=== PATIENT | male | born 1955 | race Caucasian/White ===

== ENCOUNTER 2024-06-18 18:44 | Inpatient (IN) | payer OTHER ==
[~2024-06-18] VITALS: Ht 172.7 cm; Wt 69.9 kg
[~2024-06-18 18:44] MED LIST: ASCO-339 MT; ASPI-1497 MT; ATOR40TA70 MT; CLOP-31 MT; CLOP75TA33 MT; FERR-71 MT; HYDR25TA78 MT; INSU100I24 SQ; INSU100I28 SQ; OMEG100017 MT; PANT40TA51 MT
[2024-06-18] MEDS: HYDROCODONE/ACETAMINOPHEN 10/325MG TABLET PO ONE (19:44)
[2024-06-18 19:55] LABS: BASOPHILS % 0.6 % (0.0-2.0); EOSINOPHILS % 0.6 % (0.0-5.0); HEMATOCRIT. 24.5 % (42.0-52.0); HEMOGLOBIN. 8.2 g/dL (14.0-18.0); LYMPHOCYTES % 9.9 % (20.0-50.0); MEAN CORPUSCULAR HEMOGLOBIN 29.3 pg (28.0-32.0); MEAN CORPUSCULAR HGB CONC 33.5 g/dL (31.0-37.0); MEAN CORPUSCULAR VOLUME 87.6 fL (80.0-94.0); MEAN PLATELET VOLUME 7.4 fl (7.4-10.4); MONOCYTES % 7.5 % (2.0-8.0); NEUTROPHILS % 81.4 % (40.0-76.0); PLATELET 233 x1000/uL (130-400); RED BLOOD CELL COUNT 2.79 mill/uL (4.7-6.1); RED CELL DISTRIBUTION WIDTH 13.7 % (11.6-14.6); WHITE BLOOD COUNT 10.5 x1000/uL (4.5-11.0)
[2024-06-18 20:01] LABS: CALCIUM 7.8 mg/dL (8.7-10.4)
[2024-06-18 20:23] LABS: CREATININE 1.9 mg/dL (0.6-1.3)
[2024-06-18 20:36] LABS: BETA HYDROXYBUTYRATE 1.8 mMol/L (0.0-0.3)
[2024-06-18 20:45] LABS: CREATINE KINASE 150 IU/L (46-171)
[2024-06-18 21:25] LABS: INR 1.1
[2024-06-18] MEDS: MORPHINE SULFATE 4 MG/ML INJ (FOR IV/IM USE) IV ONE (21:47)
[2024-06-18] MEDS: INSULIN REGULAR (HUMULIN R) 1000UNITS/10ML VIAL SUBCUT NR (21:48)
[2024-06-18] MEDS: SODIUM CHLORIDE 0.9% 1,000 ML IV ONE (21:48)
[2024-06-18 23:30] VITALS: BP 99/55; PULSE 65; RESP 18; TEMP 36.418
[2024-06-19] VITALS: BP 97/55; PULSE 65; RESP 18; TEMP 36.3918; O2SAT 97
[2024-06-19] MEDS ORDERED: ACETAMINOPHEN 325MG TABLET PO PRN (00:15)
[2024-06-19] MEDS ORDERED: ONDANSETRON HCL 4MG/2ML INJ IV PRN (00:15)
[2024-06-19] MEDS ORDERED: NALOXONE HCL 0.4MG/ML VIAL IV PRN (00:30)
[2024-06-19] MEDS ORDERED: DEXTROSE 50% WATER 50ML SYRINGE IV PRN ×2 (00:45→10:45)
[2024-06-19] MEDS: ZOLPIDEM TARTRATE 5MG TABLET PO PRN (01:30)
[2024-06-19] MEDS: SODIUM CHLORIDE 0.9% 1,000 ML IV SCH (01:31)
[2024-06-19] MEDS: HYDROCODONE/ACETAMINOPHEN 5/325MG TABLET PO PRN (01:33)
[2024-06-19 04:00] VITALS: BP 128/52; PULSE 60; RESP 17; TEMP 36.44736; O2SAT 98
[2024-06-19] MEDS: BLOOD SUGAR DIAGNOSTIC STRIP TEST SCH (06:36)
[2024-06-19] MEDS: PANTOPRAZOLE 40MG DR TABLET PO SCH (06:36)
[2024-06-19] MEDS: INSULIN LISPRO 100 UNITS/ML SUBCUT SCH ×2 (07:50→12:53)
[2024-06-19 09:48] LABS: CREATINE KINASE MB FRACTION 2.1 ng/mL (0.5-3.6); TROPONIN I HIGH SENSITIVITY 9 ng/L (3.0-53)
[2024-06-19 09:50] LABS: CREATINE KINASE 142 IU/L (46-171)
[2024-06-19 12:00] VITALS: BP 139/53; PULSE 60; PULSE 61; RESP 18; RESP 19; TEMP 36.89184; O2SAT 95; O2SAT 98
[2024-06-19] MEDS: ENOXAPARIN 40MG/0.4ML SYR SUBCUT SCH (12:17)
[2024-06-19] MEDS ORDERED: BLOOD SUGAR DIAGNOSTIC STRIP TEST SCH (12:20)
[2024-06-19 16:00] VITALS: BP 110/47; PULSE 60; RESP 18; TEMP 36.50292; O2SAT 95
[2024-06-19 16:29] LABS: CHLORIDE 108 mEq/L (98-107); POTASSIUM 3.5 mEq/L (3.5-5.1); SODIUM 138 mEq/L (136-145)
[2024-06-19 16:30] LABS: CARBON DIOXIDE 23 mEq/L (21-32)
[2024-06-19 16:31] LABS: CALCIUM 7.6 mg/dL (8.7-10.4)
[2024-06-19 16:35] LABS: CREATININE 1.6 mg/dL (0.6-1.3); IRON 34 ug/dL (65-175)
[2024-06-19 16:36] LABS: CREATINE KINASE MB FRACTION 2.6 ng/mL (0.5-3.6); UREA NITROGEN BLOOD 19 mg/dL (9-23)
[2024-06-19 16:38] LABS: TOTAL IRON BINDING CAPACITY 108 ug/dl (250-425)
[2024-06-19 16:40] LABS: FERRITIN 865 ng/mL (22-322); FOLIC ACID (FOLATE) SERUM 14.61 ng/mL (>5.38)
[2024-06-19 16:41] LABS: VITAMIN B12 SERUM 738 pg/mL (211-911)
[2024-06-19 16:46] LABS: GLUCOSE 157 mg/dL (70-105)
[2024-06-19 20:00] VITALS: BP 138/57; PULSE 66; RESP 18; TEMP 36.44736; O2SAT 95
[2024-06-19 21:51] LABS: CREATINE KINASE 139 IU/L (46-171)
[2024-06-19] MEDS ORDERED: INSULIN GLARGINE 100 UNITS/ML SUBCUT SCH (22:00)
[2024-06-20] VITALS: BP 149/54; PULSE 70; RESP 18; TEMP 36.44736; O2SAT 96
[2024-06-20 04:00] VITALS: BP 143/65; PULSE 93; RESP 18; TEMP 36.28068; O2SAT 96
[2024-06-20 06:36] LABS: CALCIUM 7.6 mg/dL (8.7-10.4); POTASSIUM 4.3 mEq/L (3.5-5.1)
[2024-06-20 06:40] LABS: CREATININE 1.5 mg/dL (0.6-1.3)
[2024-06-20 07:16] LABS: BASOPHILS % 0.9 % (0.0-2.0); EOSINOPHILS % 2.5 % (0.0-5.0); HEMATOCRIT. 25.2 % (42.0-52.0); HEMOGLOBIN. 8.6 g/dL (14.0-18.0); LYMPHOCYTES % 7.8 % (20.0-50.0); MEAN CORPUSCULAR HEMOGLOBIN 29.8 pg (28.0-32.0); MEAN CORPUSCULAR HGB CONC 34.1 g/dL (31.0-37.0); MEAN CORPUSCULAR VOLUME 87.4 fL (80.0-94.0); MEAN PLATELET VOLUME 7.9 fl (7.4-10.4); MONOCYTES % 4.5 % (2.0-8.0); NEUTROPHILS % 84.3 % (40.0-76.0); PLATELET 214 x1000/uL (130-400); RED BLOOD CELL COUNT 2.89 mill/uL (4.7-6.1); RED CELL DISTRIBUTION WIDTH 13.8 % (11.6-14.6); WHITE BLOOD COUNT 9.8 x1000/uL (4.5-11.0)
[2024-06-20 08:00] VITALS: BP 130/90; PULSE 73; RESP 17; TEMP 36.16956; O2SAT 98
[2024-06-20] MEDS ORDERED: TRANEXAMIC ACID 1000MG PREMIX 100 ML IV SCH ×2 (09:15)
[2024-06-20] MEDS ORDERED: VANCOMYCIN HCL 1GM VIAL ONE ×2 (09:42→11:26)
[2024-06-20] MEDS ORDERED: POLYMYXIN B SULFATE 500000 UNITS/VIAL ONE (09:42)
[2024-06-20] MEDS ORDERED: LIDOCAINE HCL/EPINEPHRINE 1%-EPI 1:100,000 20 ML VIAL ONE (09:43)
[2024-06-20] MEDS ORDERED: ROPIVACAINE HCL 1% 20 ML VIAL EPI ONE (09:46)
[2024-06-20] MEDS ORDERED: MORPHINE SULFATE/PF 1MG/ML 10ML AMP ONE (09:47)
[2024-06-20] MEDS ORDERED: EPINEPHRINE 1:1000 1 MG/ML AMP ONE (09:47)
[2024-06-20] MEDS ORDERED: KETOROLAC 30MG/ML VIAL ONE (09:47)
[2024-06-20] MEDS ORDERED: PROPOFOL 200MG/20ML VIAL IV ONE (10:09)
[2024-06-20] MEDS ORDERED: FENTANYL CITRATE/PF 50MCG/ML 2ML VIAL ONE ×2 (10:11→11:15)
[2024-06-20] MEDS ORDERED: DEXAMETHASONE 4MG/ML 1ML VIAL ONE (10:49)
[2024-06-20] MEDS ORDERED: SUCCINYLCHOLINE CHLORIDE 200MG/10ML IV ONE (10:49)
[2024-06-20] MEDS ORDERED: EPHEDRINE SULFATE 50MG/ML VIAL ONE (10:50)
[2024-06-20] MEDS ORDERED: SKIN ADHESIVE 0.7 GM EA TOP ONE (11:37)
[2024-06-20] MEDS ORDERED: ONDANSETRON HCL 4MG/2ML INJ IV PRN ×2 (12:00)
[2024-06-20] MEDS ORDERED: CEFAZOLIN 1000MG PREMIX 50 ML IV SCH (12:00)
[2024-06-20] MEDS ORDERED: MEPERIDINE HCL/PF 25MG/ML CPJ IV PRN (12:00)
[2024-06-20] MEDS: HYDRALAZINE 20MG/ML VIAL IV NR (12:00)
[2024-06-20] MEDS ORDERED: HYDROMORPHONE HCL/PF 2MG/ML INJ IV PRN (12:00)
[2024-06-20] MEDS ORDERED: KETOROLAC 15MG/ML VIAL IV PRN (12:00)
[2024-06-20] MEDS: METOCLOPRAMIDE HCL 10MG/2ML VIAL IV SCH (18:25)
[2024-06-20] MEDS: SENNOSIDES/DOCUSATE SOD 8.6/50MG TABLET PO SCH (21:56)
[2024-06-20 22:00] VITALS: BP 133/47; PULSE 72; RESP 19; TEMP 36.33624; O2SAT 99
[2024-06-20] MEDS: CEFAZOLIN 1000MG PREMIX 50 ML IV SCH (23:10)
[2024-06-21] VITALS: BP 140/52; PULSE 70; RESP 18; TEMP 36.44736; O2SAT 100
[2024-06-21 07:19] LABS: POTASSIUM 4.6 mEq/L (3.5-5.1)
[2024-06-21 07:20] LABS: CALCIUM 7.4 mg/dL (8.7-10.4)
[2024-06-21 07:25] LABS: CREATININE 1.7 mg/dL (0.6-1.3)
[2024-06-21 08:00] VITALS: BP 129/54; PULSE 78; RESP 18; TEMP 36.50292; O2SAT 98
[2024-06-21 12:00] VITALS: BP 124/61; PULSE 74; RESP 19; TEMP 36.44736; O2SAT 97
[2024-06-21 12:26] LABS: CREATINE KINASE 178 IU/L (46-171)
[2024-06-21] MEDS: CHLORHEXIDINE GLUCONATE 4% EXTERNAL USE TOP SCH (12:52)
[2024-06-21] MEDS: CEFAZOLIN 1000MG PREMIX 50 ML IV SCH (14:52)
[2024-06-21 16:00] VITALS: BP 142/47; PULSE 68; RESP 17; TEMP 37.2252; O2SAT 98
[2024-06-21] MEDS: POVIDONE-IODINE 10% TOPICAL SOLN 240ML TOP SCH (17:10)
[2024-06-21 20:00] VITALS: BP 147/63; PULSE 73; RESP 19; TEMP 36.78072; O2SAT 96
[2024-06-22] VITALS: BP 138/73; PULSE 78; RESP 19; TEMP 36.55848; O2SAT 97
[2024-06-22 04:00] VITALS: BP 171/58; PULSE 82; RESP 19; TEMP 37.11408; O2SAT 98
[2024-06-22] MEDS: HYDROCODONE/ACETAMINOPHEN 5/325MG TABLET PO PRN (06:46)
[2024-06-22] MEDS: CLONIDINE 0.1MG TABLET PO PRN (06:47)
[2024-06-22 07:02] LABS: CHLORIDE 112 mEq/L (98-107); SODIUM 140 mEq/L (136-145)
[2024-06-22 07:03] LABS: CARBON DIOXIDE 20 mEq/L (21-32)
[2024-06-22 07:04] LABS: CALCIUM 7.9 mg/dL (8.7-10.4)
[2024-06-22 07:08] LABS: CREATININE 1.2 mg/dL (0.6-1.3); GLUCOSE 364 mg/dL (70-105)
[2024-06-22 07:09] LABS: UREA NITROGEN BLOOD 16 mg/dL (9-23)
[2024-06-22 07:33] LABS: BASOPHILS % 0.4 % (0.0-2.0); EOSINOPHILS % 1.5 % (0.0-5.0); HEMATOCRIT. 23.1 % (42.0-52.0); HEMOGLOBIN. 7.5 g/dL (14.0-18.0); LYMPHOCYTES % 7.9 % (20.0-50.0); MEAN CORPUSCULAR HEMOGLOBIN 29.2 pg (28.0-32.0); MEAN CORPUSCULAR HGB CONC 32.5 g/dL (31.0-37.0); MEAN PLATELET VOLUME 7.9 fl (7.4-10.4); MONOCYTES % 5.3 % (2.0-8.0); NEUTROPHILS % 84.9 % (40.0-76.0); PLATELET 207 x1000/uL (130-400); RED BLOOD CELL COUNT 2.57 mill/uL (4.7-6.1); RED CELL DISTRIBUTION WIDTH 14.7 % (11.6-14.6); WHITE BLOOD COUNT 11.8 x1000/uL (4.5-11.0)
[2024-06-22 08:00] VITALS: BP 162/87; PULSE 86; RESP 18; TEMP 37.16964; O2SAT 98
[2024-06-22 08:49] LABS: PREALBUMIN < 5.0 mg/dl (10.0-40.0)
[2024-06-22 12:00] VITALS: BP 162/45; PULSE 67; RESP 17; TEMP 36.89184; O2SAT 99
[2024-06-22 16:00] VITALS: BP 146/33; PULSE 47; RESP 17; TEMP 36.78072; O2SAT 99
[2024-06-22 20:00] VITALS: BP 154/63; PULSE 69; RESP 16; TEMP 36.28068; O2SAT 100
[2024-06-22] MEDS: HYDROCODONE/ACETAMINOPHEN 10/325MG TABLET PO PRN (21:53)
[2024-06-23] VITALS: BP 149/76; PULSE 61; RESP 18; TEMP 36.89184; O2SAT 98
[2024-06-23 04:00] VITALS: BP 132/66; PULSE 68; RESP 19; TEMP 36.28068; O2SAT 100
[2024-06-23 07:33] LABS: BASOPHILS % 0.9 % (0.0-2.0); EOSINOPHILS % 3.8 % (0.0-5.0); HEMATOCRIT. 24.2 % (42.0-52.0); HEMOGLOBIN. 7.9 g/dL (14.0-18.0); LYMPHOCYTES % 17.6 % (20.0-50.0); MEAN CORPUSCULAR HEMOGLOBIN 29.2 pg (28.0-32.0); MEAN CORPUSCULAR HGB CONC 32.6 g/dL (31.0-37.0); MEAN CORPUSCULAR VOLUME 89.6 fL (80.0-94.0); MEAN PLATELET VOLUME 7.8 fl (7.4-10.4); NEUTROPHILS % 70.7 % (40.0-76.0); PLATELET 214 x1000/uL (130-400); RED CELL DISTRIBUTION WIDTH 14.6 % (11.6-14.6); WHITE BLOOD COUNT 7.6 x1000/uL (4.5-11.0)
[2024-06-23 07:39] LABS: CARBON DIOXIDE 23 mEq/L (21-32); CHLORIDE 111 mEq/L (98-107); POTASSIUM 4.2 mEq/L (3.5-5.1); SODIUM 140 mEq/L (136-145)
[2024-06-23 07:40] LABS: CALCIUM 7.7 mg/dL (8.7-10.4)
[2024-06-23 07:44] LABS: CREATININE 1.1 mg/dL (0.6-1.3)
[2024-06-23 07:45] LABS: UREA NITROGEN BLOOD 12 mg/dL (9-23)
[2024-06-23 08:00] VITALS: BP 128/70; PULSE 74; RESP 20; TEMP 36.22512; O2SAT 98
[2024-06-23 08:24] LABS: GLUCOSE 211 mg/dL (70-105)
[2024-06-23 12:00] VITALS: BP 130/68; PULSE 72; RESP 19; TEMP 36.22512; O2SAT 99
[2024-06-23 16:00] VITALS: BP 129/71; PULSE 75; RESP 19; TEMP 36.33624; O2SAT 99
[2024-06-23] MEDS: METFORMIN HCL 500MG TABLET PO SCH (17:50)
[2024-06-23 20:00] VITALS: BP 148/70; PULSE 82; RESP 16; TEMP 36.83628; O2SAT 98
[2024-06-24] VITALS: BP 124/73; PULSE 69; RESP 18; TEMP 36.50292; O2SAT 100
[2024-06-24 04:00] VITALS: BP 134/70; PULSE 90; RESP 16; TEMP 37.44744; O2SAT 99
[2024-06-24 08:00] VITALS: BP 178/61; PULSE 76; RESP 18; TEMP 36.28068; O2SAT 99
[2024-06-24] MEDS: ACETAMINOPHEN 325MG TABLET PO PRN (09:58)
[2024-06-24 12:00] VITALS: BP 110/47; PULSE 74; RESP 18; TEMP 36.33624; O2SAT 97
[2024-06-24] MEDS ORDERED: NALOXONE HCL 0.4MG/ML VIAL IV PRN (16:45)
[2024-06-24 20:00] VITALS: BP 139/46; PULSE 77; RESP 18; TEMP 36.9474; O2SAT 100
[2024-06-25] VITALS: BP 158/61; PULSE 73; RESP 20; TEMP 36.6696; O2SAT 98
[2024-06-25 04:00] VITALS: BP 159/59; PULSE 78; RESP 20; TEMP 36.61404; O2SAT 98
[2024-06-25 08:00] VITALS: BP 105/46; PULSE 81; RESP 19; TEMP 37.16964; O2SAT 97
[2024-06-25 12:00] VITALS: BP 120/69; PULSE 81; RESP 19; TEMP 37.16964; O2SAT 99
[2024-06-25 16:00] VITALS: BP 137/69; PULSE 84; RESP 19; TEMP 36.61404; O2SAT 96
[2024-06-25 20:00] VITALS: BP 168/57; PULSE 84; RESP 20; TEMP 36.61404; O2SAT 99
[2024-06-26] VITALS: BP 162/60; PULSE 72; RESP 20; TEMP 36.50292; O2SAT 95
[2024-06-26 04:00] VITALS: BP 162/59; PULSE 75; RESP 20; TEMP 36.50292; O2SAT 98
[2024-06-26 08:00] VITALS: BP 150/65; PULSE 76; RESP 18; TEMP 36.55848; O2SAT 100
[2024-06-26 12:00] VITALS: BP 144/58; PULSE 73; RESP 19; TEMP 37.05852; O2SAT 97
[2024-06-26 16:00] VITALS: BP 144/58; PULSE 79; RESP 19; TEMP 26.1132; O2SAT 100
[2024-06-26 20:00] VITALS: BP 135/61; PULSE 85; RESP 20; TEMP 36.61404; O2SAT 99
[2024-06-27] VITALS: BP 160/36; PULSE 78; RESP 20; TEMP 35.8362; O2SAT 99
[2024-06-27 08:00] VITALS: BP 128/63; PULSE 82; RESP 19; TEMP 36.55848; O2SAT 97
[2024-06-27 08:31] LABS: BASOPHILS % 0.6 % (0.0-2.0); EOSINOPHILS % 2.3 % (0.0-5.0); HEMATOCRIT. 22.8 % (42.0-52.0); HEMOGLOBIN. 7.7 g/dL (14.0-18.0); LYMPHOCYTES % 20.2 % (20.0-50.0); MEAN CORPUSCULAR HEMOGLOBIN 29.4 pg (28.0-32.0); MEAN CORPUSCULAR HGB CONC 33.8 g/dL (31.0-37.0); MEAN CORPUSCULAR VOLUME 87.1 fL (80.0-94.0); MEAN PLATELET VOLUME 7.7 fl (7.4-10.4); MONOCYTES % 9.3 % (2.0-8.0); NEUTROPHILS % 67.6 % (40.0-76.0); PLATELET 231 x1000/uL (130-400); RED BLOOD CELL COUNT 2.62 mill/uL (4.7-6.1); RED CELL DISTRIBUTION WIDTH 14.5 % (11.6-14.6); WHITE BLOOD COUNT 6.4 x1000/uL (4.5-11.0)
[2024-06-27 08:45] LABS: CHLORIDE 102 mEq/L (98-107); POTASSIUM 3.4 mEq/L (3.5-5.1); SODIUM 135 mEq/L (136-145)
[2024-06-27 08:46] LABS: CALCIUM 7.6 mg/dL (8.7-10.4); CARBON DIOXIDE 26 mEq/L (21-32)
[2024-06-27 08:51] LABS: CREATININE 1.2 mg/dL (0.6-1.3); GLUCOSE 315 mg/dL (70-105); UREA NITROGEN BLOOD 11 mg/dL (9-23)
[2024-06-27] MEDS: POTASSIUM CHLORIDE 20MEQ TABLET SR PO NR (11:22)
[2024-06-27 12:00] VITALS: BP 113/65; PULSE 83; RESP 18; TEMP 35.5584; O2SAT 98
[2024-06-27 16:00] VITALS: BP 136/63; PULSE 80; RESP 19; TEMP 36.114; O2SAT 98
[2024-06-27 20:00] VITALS: BP 130/59; PULSE 84; RESP 20; TEMP 35.61396; O2SAT 99
[2024-06-28] VITALS: BP 120/57; PULSE 82; RESP 20; TEMP 36.61404; O2SAT 100
[2024-06-28 08:00] VITALS: BP 144/62; PULSE 80; RESP 18; TEMP 36.44736; O2SAT 97
[2024-06-28 08:21] LABS: BASOPHILS % 0.6 % (0.0-2.0); EOSINOPHILS % 1.8 % (0.0-5.0); HEMATOCRIT. 23.1 % (42.0-52.0); HEMOGLOBIN. 7.7 g/dL (14.0-18.0); LYMPHOCYTES % 25.9 % (20.0-50.0); MEAN CORPUSCULAR HEMOGLOBIN 28.6 pg (28.0-32.0); MEAN CORPUSCULAR HGB CONC 33.1 g/dL (31.0-37.0); MEAN CORPUSCULAR VOLUME 86.6 fL (80.0-94.0); MEAN PLATELET VOLUME 7.5 fl (7.4-10.4); MONOCYTES % 9.8 % (2.0-8.0); NEUTROPHILS % 61.9 % (40.0-76.0); PLATELET 227 x1000/uL (130-400); POTASSIUM 3.7 mEq/L (3.5-5.1); RED BLOOD CELL COUNT 2.67 mill/uL (4.7-6.1); RED CELL DISTRIBUTION WIDTH 14.3 % (11.6-14.6); WHITE BLOOD COUNT 5.8 x1000/uL (4.5-11.0)
[2024-06-28 08:22] LABS: CALCIUM 7.6 mg/dL (8.7-10.4)
[2024-06-28 08:27] LABS: CREATININE 1.3 mg/dL (0.6-1.3)
[2024-06-28 12:00] VITALS: BP 137/62; PULSE 77; RESP 19; TEMP 37.05852; O2SAT 98
[2024-06-28 16:00] VITALS: BP 138/60; PULSE 84; RESP 20; TEMP 35.94732; O2SAT 99
[2024-06-28] MEDS: METFORMIN HCL 500MG TABLET PO SCH (17:50)
[2024-06-28 20:00] VITALS: BP 122/56; PULSE 86; RESP 18; TEMP 37.55856; O2SAT 96
[2024-06-29 04:00] VITALS: BP 139/37; PULSE 75; RESP 18; TEMP 36.22512; O2SAT 99
[2024-06-29 08:00] VITALS: BP 169/70; PULSE 80; RESP 18; TEMP 38.00304; O2SAT 97
[2024-06-29 12:00] VITALS: PULSE 75; RESP 18; TEMP 36.83628; O2SAT 98
[2024-06-29 16:00] VITALS: BP 145/71; PULSE 76; RESP 18; TEMP 37.00296; O2SAT 98
[2024-06-29 20:00] VITALS: BP 131/67; PULSE 61; RESP 19; TEMP 36.33624; O2SAT 97
[2024-06-30] VITALS: BP 118/60; PULSE 96; RESP 18; TEMP 36.50292; O2SAT 97
[2024-06-30 04:00] VITALS: BP 139/58; PULSE 75; RESP 19; TEMP 36.3918; O2SAT 97
[2024-06-30 08:00] VITALS: BP 151/67; PULSE 78; RESP 18; TEMP 37.05852; O2SAT 99
[2024-06-30 12:00] VITALS: BP 123/61; PULSE 83; RESP 18; TEMP 37.00296; O2SAT 100
[2024-06-30 16:00] VITALS: BP 125/59; PULSE 85; RESP 18; TEMP 36.78072; O2SAT 100
[2024-06-30 20:00] VITALS: BP 133/64; PULSE 77; RESP 17; TEMP 36.78072; O2SAT 100
[2024-07-01] VITALS: BP 151/67; PULSE 78; RESP 17; TEMP 36.3918; O2SAT 98
[2024-07-01 04:00] VITALS: BP 150/65; PULSE 77; RESP 20; TEMP 36.72516; O2SAT 100
[2024-07-01] MEDS: GLIPIZIDE 5MG TABLET PO SCH (07:54)
[2024-07-01 08:00] VITALS: BP 110/64; PULSE 93; RESP 19; TEMP 37.00296; O2SAT 98
[2024-07-01 12:00] VITALS: BP 114/87; PULSE 94; RESP 18; TEMP 36.44736; O2SAT 99
[2024-07-01 16:00] VITALS: BP 111/54; PULSE 84; RESP 18; TEMP 37.05852; O2SAT 97
[2024-07-01 20:00] VITALS: BP 137/62; PULSE 72; RESP 20; TEMP 36.61404; O2SAT 98
[2024-07-02 08:00] VITALS: BP 176/78; PULSE 81; RESP 19; TEMP 36.44736; O2SAT 100
[2024-07-02] MEDS: AMLODIPINE 5MG TABLET PO SCH (11:39)
[2024-07-02 12:00] VITALS: BP 139/64; PULSE 77; RESP 18; TEMP 37.05852; O2SAT 97
[2024-07-02 16:00] VITALS: BP 119/58; PULSE 74; RESP 19; TEMP 36.55848; O2SAT 98
[2024-07-02 20:00] VITALS: BP 123/58; PULSE 80; RESP 18; TEMP 35.89176; O2SAT 100
[2024-07-03] VITALS: BP 131/62; PULSE 74; RESP 18; TEMP 35.8362; O2SAT 99
[2024-07-03 08:00] VITALS: BP 146/64; PULSE 78; RESP 18; TEMP 37.2252; O2SAT 98
[2024-07-03 10:23] LABS: BASOPHILS % 1.3 % (0.0-2.0); EOSINOPHILS % 2.2 % (0.0-5.0); HEMATOCRIT. 25.9 % (42.0-52.0); HEMOGLOBIN. 8.6 g/dL (14.0-18.0); LYMPHOCYTES % 20.1 % (20.0-50.0); MEAN CORPUSCULAR HEMOGLOBIN 28.9 pg (28.0-32.0); MEAN CORPUSCULAR HGB CONC 33.2 g/dL (31.0-37.0); MEAN PLATELET VOLUME 7.5 fl (7.4-10.4); NEUTROPHILS % 70.4 % (40.0-76.0); PLATELET 252 x1000/uL (130-400); RED BLOOD CELL COUNT 2.98 mill/uL (4.7-6.1); RED CELL DISTRIBUTION WIDTH 14.9 % (11.6-14.6); WHITE BLOOD COUNT 7.2 x1000/uL (4.5-11.0)
[2024-07-03 10:34] LABS: POTASSIUM 4.7 mEq/L (3.5-5.1)
[2024-07-03 10:36] LABS: CALCIUM 8.1 mg/dL (8.7-10.4)
[2024-07-03 10:40] LABS: CREATININE 1.4 mg/dL (0.6-1.3)
[2024-07-03 12:00] VITALS: BP 99/59; PULSE 76; RESP 18; TEMP 36.6696; O2SAT 100
[2024-07-03 16:00] VITALS: BP 112/54; PULSE 84; RESP 18; TEMP 36.72516; O2SAT 100
[2024-07-03 20:00] VITALS: BP 137/50; PULSE 78; RESP 20; TEMP 36.55848; O2SAT 98
[2024-07-04] VITALS: BP 116/67; PULSE 68; RESP 20; TEMP 36.55848; O2SAT 100
[2024-07-04 04:00] VITALS: BP 161/70; PULSE 80; RESP 19; TEMP 36.89184; O2SAT 97
[2024-07-04 08:00] VITALS: BP 150/54; PULSE 85; RESP 18; TEMP 36.72516; O2SAT 100
[2024-07-04 12:00] VITALS: BP 120/57; PULSE 77; RESP 18; TEMP 36.55848; O2SAT 100
[2024-07-04 16:00] VITALS: BP 133/61; PULSE 76; RESP 18; TEMP 37.00296; O2SAT 100
[2024-07-04 20:00] VITALS: BP 138/63; PULSE 78; RESP 20; TEMP 36.78072; O2SAT 100
[2024-07-05] VITALS: BP 128/65; PULSE 81; RESP 18; TEMP 36.6696; O2SAT 99
[2024-07-05 04:00] VITALS: BP 122/68; PULSE 75; RESP 18; TEMP 36.55848; O2SAT 100
[2024-07-05 08:00] VITALS: BP_SYST 135; BP_SYST 96; BP_DIAS 58; BP_DIAS 65; PULSE 82; PULSE 86; RESP 17; TEMP 36.114; O2SAT 95; O2SAT 98
[2024-07-05 12:00] VITALS: BP 136/66; PULSE 78; RESP 17; TEMP 36.50292; O2SAT 97
[2024-07-05 16:00] VITALS: BP 141/52; PULSE 85; RESP 18; TEMP 36.3918; O2SAT 97
[2024-07-05 20:00] VITALS: BP 112/67; PULSE 86; RESP 18; TEMP 37.05852; O2SAT 97
[2024-07-06] VITALS: BP 124/69; PULSE 86; RESP 20; TEMP 37.11408; O2SAT 98
[2024-07-06 04:00] VITALS: BP 134/62; PULSE 83; RESP 19; TEMP 37.05852; O2SAT 97
[2024-07-06 08:00] VITALS: BP 136/62; PULSE 81; RESP 18; TEMP 36.78072; O2SAT 99
[2024-07-06 12:00] VITALS: BP 142/67; PULSE 87; RESP 18; TEMP 36.61404; O2SAT 98
[2024-07-06 16:00] VITALS: BP 137/67; PULSE 88; RESP 18; TEMP 36.61404; O2SAT 100
[2024-07-06 20:00] VITALS: BP 96/40; PULSE 102; RESP 19; TEMP 36.22512; O2SAT 100
[2024-07-07] VITALS: BP 130/57; PULSE 81; RESP 16; TEMP 36.83628; O2SAT 97
[2024-07-07 04:00] VITALS: BP 108/59; PULSE 86; RESP 17; TEMP 36.44736; O2SAT 100
[2024-07-07 12:00] VITALS: BP 100/45; PULSE 88; RESP 20; TEMP 36.44736; O2SAT 99
[2024-07-07 14:33] VITALS: BP 126/78; PULSE 98; TEMP 98.2; O2SAT 98
[2024-07-07 16:00] VITALS: BP 91/50; PULSE 99; RESP 19; TEMP 35.94732; O2SAT 99
== END 2024-07-07 16:15 | disposition hospice, home (50) | DRG 323 ==
LOC: ER 18:44 → EDBEDREQ 21:23 → EDBEDREQTM 21:23 → EDBEDREQSVC 21:23 → 6EST 23:56
PROVIDERS: ADMIT Internal Medicine; ATTEND Internal Medicine
PROC: 0SRR0JZ Replacement of Right Hip Joint, Femoral Surface with Synthetic Substitute, Open Approach (ICD-10-PCS; principal; 2024-06-20)
PROC: 0JB70ZZ Excision of Back Subcutaneous Tissue and Fascia, Open Approach (ICD-10-PCS; 2024-06-24)
DX: S72.091A Other fracture of head and neck of right femur, initial encounter for closed fracture (principal); N17.0 Acute kidney failure with tubular necrosis; L89.153 Pressure ulcer of sacral region, stage 3; E87.20 Acidosis, unspecified; E88.89 Other specified metabolic disorders; E11.22 Type 2 diabetes mellitus with diabetic chronic kidney disease; D64.9 Anemia, unspecified; R62.7 Adult failure to thrive; E11.40 Type 2 diabetes mellitus with diabetic neuropathy, unspecified; E11.621 Type 2 diabetes mellitus with foot ulcer; N18.9 Chronic kidney disease, unspecified; R26.9 Unspecified abnormalities of gait and mobility; I12.9 Hypertensive chronic kidney disease with stage 1 through stage 4 chronic kidney disease, or unspecified chronic kidney disease; E11.65 Type 2 diabetes mellitus with hyperglycemia; E78.00 Pure hypercholesterolemia, unspecified; Z96.649 Presence of unspecified artificial hip joint; Z60.2 Problems related to living alone; W18.39XA Other fall on same level, initial encounter; F03.90 Unspecified dementia, unspecified severity, without behavioral disturbance, psychotic disturbance, mood disturbance, and anxiety; Z79.02 Long term (current) use of antithrombotics/antiplatelets; Z79.899 Other long term (current) drug therapy; Z82.49 Family history of ischemic heart disease and other diseases of the circulatory system; Y93.89 Activity, other specified; Y92.89 Other specified places as the place of occurrence of the external cause; Y99.8 Other external cause status; Z68.23 Body mass index [BMI] 23.0-23.9, adult
CPT/HCPCS: 36415; 71045; 72170; 73501; 76770; 80048; 82010; 82040; 82550; 82553; 82607; 82728; 82746; 82962; 83036; 83540; 83550; 84134; 84484; 85025; 86850; 86900; 87426; 88311; 93005; 93970; 97110; 97116; 97162; 97166; 97530; 97535; 99285; C1893; J0330; J0690; J1100; J1650; J1815; J1885; J2270; J2274; J2704; J2765; J2795; J3010; J3370; J3490; J7030; C1776